=== PATIENT | female | born 2005 | race Caucasian/White ===

== ENCOUNTER 2023-05-17 17:56 | Observation (INO) ==
[2023-05-17 18:54] LABS: ABS Eosinophils 0.2 10^3/uL (0.0-0.5); ABS Lymphocytes 1.2 10^3/uL (1.0-4.8); ABS Monocytes 0.4 10^3/uL (0.0-0.9); ABS Neutrophils 3.6 10^3/uL (1.5-7.6); Eosinophil % 2.8 %; Hematocrit 34.2 % (35-45); Hemoglobin 11.8 g/dL (11.5-14.3); Lymphocyte % 22.8 %; Mean Corpuscular Hemoglobin 30.2 pg (27-33); Mean Corpuscular Hgb Conc 34.5 g/dL (31-36); Mean Corpuscular Volume 87.3 fL (80-97); Mean Platelet Volume 8.3 fL (7.5-11.2); Nucleated Red Blood Cells % 0.1 /100 WBC (0.0-0.4); Platelet Count 227 10^3/uL (150-450); Red Blood Count 3.91 10^6/uL (3.63-4.92); Red Cell Distribution Width 13.6 % (12-17); White Blood Count 5.3 10^3/uL (3.8-11.8)
[2023-05-17 19:12] LABS: ALT 8 U/L (7-52); AST 12 U/L (13-39); Albumin/Globulin Ratio 2.1 (1-3); Alkaline Phosphatase 64 U/L (35-149); Anion Gap 6 mmol/L (2-16); Blood Urea Nitrogen 15 mg/dL (6-24); C Reactive Protein < 1.00 mg/L (<8.01); CO2 Carbon Dioxide 26 mmol/L (22-32); Calcium 9.5 mg/dL (8.6-10.3); Chloride 107 mmol/L (101-111); Creatinine, Serum 0.75 mg/dL (0.51-0.95); Globulin 2.4 g/dL (2-4); Glucose 74 mg/dL (70-100); Potassium 3.8 mmol/L (3.5-5.0); Sodium 139 mmol/L (135-145); Total Protein 7.4 g/dL (6.4-8.9); eGFR CKD-EPI 117.5 (>60)
[2023-05-17] MEDS ORDERED: Ondansetron ODT 4 mg TAB 4 MG TAB SL ONE (20:14)
[2023-05-17 21:34] LABS: Erythrocyte Sed Rate 7 mm/Hr (0-19)
[2023-05-17] MEDS ORDERED: Ondansetron 4 mg VIAL 2 MG/ML 2 ml VIAL IV PRN (22:08)
[2023-05-17 22:41] LABS: HCG Pregnancy < 0.60 mIU/mL
[2023-05-18 13:12] LABS: Body Fluid Source Cerebral Spinal
[2023-05-18 13:37] LABS: CSF Glucose 64 mg/dL (40-70)
[2023-05-18 13:41] LABS: Body Fluid Appearance Clear; Body Fluid Color Colorless; CSF Tube # 4
[2023-05-18 14:20] LABS: Body Fluid WBC 2 /mcL
[2023-05-18 14:21] LABS: Body Fluid Mono 20 %; Body Fluid Total Cells Counted 54
[2023-05-18] MEDS ORDERED: Gadoteridol (CONTRAST) 279.3 MG/ML 10 ML IV ONE (21:51)
[2023-05-18 22:41] VITALS: BP 110/65
[2023-05-19] MEDS ORDERED: Rabies VIRUS VACCINE (RabAvert) 2.5 UNITS VIAL IM ONE (09:00)
[2023-05-21 16:07] LABS: CSF Oligoclonal Bands 0 bands; Oligoclonal Proteins Interpret 0 bands (<2); Serum Oligoclonal Bands 0 bands
== END 2023-05-18 22:41 | disposition home or self-care (01) ==
LOC: EDHOLD 17:56 → ED 17:56 → ICU 05-18 21:01 → EDHOLD 05-18 21:16
PROVIDERS: ADMIT Student in an Organized Health Care Education/Training Program; ATTEND Student in an Organized Health Care Education/Training Program